=== PATIENT | male | born 2000 | race African-American/Black ===

== ENCOUNTER 2023-03-05 11:31 | Outpatient (CLI) | payer SELFPAY | END 2023-03-05 11:32 | disposition home or self-care (01) | LOC: FRMREF 11:32 | PROVIDERS: PCP Family Medicine; Visit Provider Family Medicine | DX: R53.83 Other fatigue (principal); R63.4 Abnormal weight loss; R05.9 Cough, unspecified | CPT/HCPCS: 80048 ==